=== PATIENT | female | born 1965 | race Caucasian/White ===

== ENCOUNTER → 2016-08-14 11:28 | Outpatient (CLI) | payer OTHER | END | disposition home or self-care (01) | LOC: D.US 11:28 | DX: R10.11 Right upper quadrant pain (principal) ==

== ENCOUNTER → 2016-08-16 12:35 | Outpatient (CLI) | payer OTHER | END | disposition home or self-care (01) | LOC: D.NM 12:35 | DX: R10.9 Unspecified abdominal pain (principal) ==